=== PATIENT | male | born 1995 | race Caucasian/White ===

== ENCOUNTER 2019-04-19 10:32 | Emergency (ER) | payer MEDICAID ==
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
== END 2019-04-19 11:56 | disposition home or self-care (01) ==
LOC: FB.ED 10:32
DX: S63.502A Unspecified sprain of left wrist, initial encounter (principal); Z88.0 Allergy status to penicillin; V18.9XXA Unspecified pedal cyclist injured in noncollision transport accident in traffic accident, initial encounter
CPT/HCPCS: 73110-LT; 99283-25